=== PATIENT | male | born 1975 | race Caucasian/White ===

== ENCOUNTER 2022-03-05 10:03 | Emergency (ER) | payer OTHER ==
[~2022-03-05] VITALS: Wt 120.2 kg
[~2022-03-05 10:03] MED LIST: BACTRIM DS 8001 TA1 PO; DIABETA5 MG PO; KEFLEX500 MG PO; METFORMIN1000 MG PO; MOTRIN600 MG PO; MOTRIN800 MG PO; VICODIN 5/500 505 MG PO; VICODIN 500 MG-1 TAB PO
[2022-03-05] MEDS ORDERED: SUBLOCADE100 MG/0.5 SQ (10:18)
[2022-03-05] MEDS ORDERED: TOBRAMYCIN 5 ML5 M1 OPH (11:38)
[2022-03-05] MEDS ORDERED: IBUPROFEN600 MG PO (11:38)
== END 2022-03-05 11:56 | disposition home or self-care (01) ==
LOC: ED 10:03
DX: S05.01XA Injury of conjunctiva and corneal abrasion without foreign body, right eye, initial encounter (principal); W22.8XXA Striking against or struck by other objects, initial encounter; Y93.89 Activity, other specified; Y92.89 Other specified places as the place of occurrence of the external cause; Y99.8 Other external cause status